=== PATIENT | male | born 2000 | race Caucasian/White ===

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

== ENCOUNTER → 2022-01-11 16:00 | Outpatient (CLI) | payer OTHER, SELFPAY | PROVIDERS: PCP Student in an Organized Health Care Education/Training Program; Visit Provider Student in an Organized Health Care Education/Training Program | DX: R11.0 Nausea (principal); Z86.19 Personal history of other infectious and parasitic diseases | CPT/HCPCS: 86677 ==

== ENCOUNTER → 2022-03-12 14:57 | Outpatient (CLI) | payer OTHER, SELFPAY ==
[2022-03-19 21:13] LABS: Homocyst(e)ine 10.7
[2022-03-19 21:14] LABS: APTT 29.4; Antithrombin Activity,Plasma 133; Factor VIII Activity 72; Protein C Activity 110; Protein S Antigen,Free 86
[2022-03-19 21:15] LABS: Activated Protein C Resist 1.8; Anti-Cardiolipin Antibody IgG <10; Hexagonal Phase Phospholipid NEGATIVE; LAC Interpreation: NEGATIVE; dRVVT 40.6
[2022-03-19 21:16] LABS: Anti-Cardiolipin Antibody IgM <10; Beta-2 Glycoprotein I Ab, IgA <10; Beta-2 Glycoprotein I Ab, IgG <10; Beta-2 Glycoprotein I Ab, IgM <10
== END ==
PROVIDERS: PCP Physician Assistant; Visit Provider Physician Assistant
DX: R10.9 Unspecified abdominal pain (principal)
CPT/HCPCS: 36415; 83090; 85240; 85300; 85302; 85306; 85598; 85613; 85730; 86146; 86147

== ENCOUNTER → 2022-03-28 10:42 | Outpatient (CLI) | payer OTHER, SELFPAY ==
--- NOTE | 2022-03-28 10:42 | MR_ITS ---
FINAL REPORT TECHNIQUE: Multiplanar MRI without gadolinium enhancement CLINICAL HISTORY: nodules bilateral lateral ankles. PUT MARKER ON ANKLE COMPARISON: none FINDINGS: Articular cartilage: No focal osteochondral defect Marrow signal: Normal pattern Joint fluid: Small Tendons: No evidence of tear Ligaments: Major ligaments unremarkable Plantar fascia: No evidence of tear or fasciitis. Other: There is no cystic or soft tissue mass identified. Skin markers are located along the dorsal lateral talus and distal dorsal lateral calcaneus. Bony structures and overlying soft tissues are unremarkable without mass. IMPRESSION: Unremarkable exam without mass lesion. Reviewed, Interpreted and Dictated by Chemo Bradley MD Transcribed by Mary Cramer Authenticated and . [facility]
--- NOTE | 2022-03-28 10:42 | MR_ITS ---
FINAL REPORT TECHNIQUE: Multiplanar MRI without gadolinium enhancement CLINICAL HISTORY: nodules bilateral lateral ankles. Put marker on spots. COMPARISON: none FINDINGS: Articular cartilage: No focal osteochondral defect Marrow signal: Normal pattern Joint fluid: Small Tendons: No evidence of tear Ligaments: Major ligaments unremarkable Plantar fascia: No evidence of tear or fasciitis. Other: There is no cystic or soft tissue mass identified. Skin markers are located along the dorsal lateral talus. Bony structures and overlying soft tissues are unremarkable without mass. IMPRESSION: Unremarkable exam without mass lesion. Reviewed, Interpreted and Dictated by Chemo Bradley MD Transcribed by Mary Cramer Authenticated and [facility]
== END ==
PROVIDERS: PCP Physician Assistant; Visit Provider Physician Assistant
DX: M25.572 Pain in left ankle and joints of left foot (principal); M25.571 Pain in right ankle and joints of right foot
CPT/HCPCS: 73721

== ENCOUNTER → 2022-07-01 23:33 | Outpatient (CLI) | payer OTHER, SELFPAY | PROVIDERS: PCP Student in an Organized Health Care Education/Training Program; Visit Provider Student in an Organized Health Care Education/Training Program | DX: J02.9 Acute pharyngitis, unspecified (principal); R50.9 Fever, unspecified; R05.9 Cough, unspecified | CPT/HCPCS: 87070; C9803; U0003; U0005 ==